=== PATIENT | male | born 1985 | race Caucasian/White ===

== ENCOUNTER 2020-07-22 17:52 | Emergency (ER) | payer SELFPAY ==
--- NOTE | 2020-07-22 21:06 | RAD ---
THREE VIEWS RIGHT WRIST: History: Right wrist swelling and pain. FINDINGS: Three views of the right wrist shows no evidence of acute fracture or dislocation. No degenerative ch anges are seen. No soft tissue swelling is present. IMPRESSION: No evidence of acute osseous abnormality. POS: [facility]
== END 2020-07-22 21:44 | disposition home or self-care (01) ==
LOC: ERS 17:52
DX: S63.501A Unspecified sprain of right wrist, initial encounter (principal); X58.XXXA Exposure to other specified factors, initial encounter

== ENCOUNTER 2020-08-06 13:03 | Outpatient (CLI) | payer BC ==
--- NOTE | 2020-08-06 13:52 | RAD ---
RADIOGRAPH CHEST 2 VIEWS: DATE: 08/06/2020 HISTORY: 35-year-old male with anterior chest wall pain, nontraumatic. FINDINGS: The lungs are clear. The cardiomediastinal silhouette and hilar shadows are normal. There is no pleur al effusion. The osseous structures appear normal. There is no pneumothorax. IMPRESSION: Normal. jn [] POS: [facility]
--- NOTE | 2020-08-06 14:42 | RAD ---
RADIOGRAPH RIGHT SHOULDER 3 VIEWS: 08/06/20 HISTORY: 35-year-old male with right anterior shoulder chronic pain without trauma. FINDINGS: No fracture or dislocation. No high grade DJD. No destructive osseous lesion. No rotator cuff calcifi cations. IMPRESSION: Negative . POS: [facility]
== END 2020-08-06 13:04 | disposition home or self-care (01) ==
LOC: BICRAD 13:03
PROVIDERS: ATTEND Internal Medicine
DX: M25.511 Pain in right shoulder (principal); R07.89 Other chest pain
CPT/HCPCS: 71046